=== PATIENT | male | born 1965 | race Caucasian/White ===

== ENCOUNTER 2018-05-27 11:16 | Emergency (ER) | payer BC ==
[~2018-05-27] VITALS: Ht 198.1 cm; Wt 115.7 kg
--- NOTE | 2018-05-27 11:59 | RAD ---
Examination: CT of the abdomen pelvis without contrast HISTORY: History of right flank pain, history of renal stones COMPARISON: 04/25/2005 TECHNIQUE: Axial CT images of the abdomen pelvis were performed without contrast. Coronal and sagittal reformats are performed Exposure: One or more of the following individualized dose reduction techniques were utilized for this examination: 1. Automated exposure control 2. Adjustment of the mA and/or kV according to patient size 3. Use of iterative reconstruction technique FINDINGS: Minimal bibasilar lung atelectasis. No evidence of free air identified in the abdomen. The evaluation of the solid organs is limited due to lack of IV contrast. The evaluation of bowel is limited due to lack of oral contrast. There is a cystic structure identified in the right lobe of the liver measuring 2.6 cm could be a cyst or cystic lesion. This was not visualized on the prior exam of 2004.The visualized spleen, adrenals grossly appears unremarkable. The gallbladder is mildly distended. Small hiatal hernia. Stomach is mildly distended. The visualized pancreas grossly appears unremarkable. The small bowel is nondilated. The appendix is dilated and fluid distended measuring up to 1.1 cm with moderate inflammatory fat stranding around the appendix likely acute appendicitis. Feces and gas noted in the colon. Urinary bladder is mildly distended. Small amount of free fluid identified in the pelvis. Punctate 2 mm intrarenal collecting system calculus identified in the left kidney. There is a cystic structure identified in the left kidney measuring 1.5 cm could be a cyst or cystic lesion. Moderate degenerative changes lumbar spine. IMPRESSION: 1. Findings consistent with acute appendicitis. 2. Punctate 2 mm calculus left kidney. 3. Cystic structures identified in the liver and left kidney could be cysts or cystic lesions. Follow-up nonemergent ultrasound liver and kidneys is recommended. Electronically signed by: Jus Nj MD (05/27/2018 11:56 AM) [facility]
[2018-05-27 12:12] LABS: BASO % 0 % (0-3); EOS % 0 % (0-3); HEMATOCRIT 43.3 % (39.0-53.0); LYMPH # 1.5 x10^3/uL (1.0-4.8); LYMPH % 14 % (24-48); MEAN CORPUSCULAR HEMOGLOBIN 31 pg (25-35); MEAN CORPUSCULAR HGB CONC 35 g/dL (31-37); MEAN CORPUSCULAR VOLUME 91 fL (79-100); MONO # 0.8 x10^3/uL (0.0-1.1); MONO % 8 % (0-9); NEUT # 8.5 x10^3uL (1.8-7.7); NEUT % 78 % (31-73); PLATELET COUNT 222 x10^3/uL (140-400); RED BLOOD COUNT 4.76 x10^6/uL (4.30-5.70); WHITE BLOOD COUNT 10.9 x10^3/uL (4.0-11.0)
[2018-05-27] MEDS ORDERED: IV NORMAL SALINE 1,000ML 1,000 ML IV ONE (12:15)
[2018-05-27 12:20] LABS: BILIRUBIN,URINE NEG (NEG); CLARITY,URINE CLEAR; COLOR,URINE AMBER; GLUCOSE,URINE NEG (NEG)
[2018-05-27 12:21] LABS: BACTERIA,URINE 0 /HPF (0-FEW); NITRITE,URINE NEG (NEG); SQUAMOUS EPITHELIAL CELL,UR OCC /LPF; UROBILINOGEN,URINE 0.2 mg/dL (0.2 mg/dL); WBC,URINE RARE /HPF (0-4)
[2018-05-27 12:25] LABS: ALBUMIN 3.8 g/dL (3.4-5.0); ALBUMIN/GLOBULIN RATIO 1.1 (1.0-1.7); CALCIUM 8.7 mg/dL (8.5-10.1); GFR 77.9; POTASSIUM 3.9 mmol/L (3.5-5.1); TOTAL BILIRUBIN 1.9 mg/dL (0.2-1.0); TOTAL PROTEIN 7.3 g/dL (6.4-8.2)
--- NOTE | 2018-05-27 12:25 | PHYS DOC ---
Past History Past Medical History: Kidney Stones Past Surgical History: No Surgical History Alcohol Use: Occasionally Drug Use: None Adult General Chief Complaint Chief Complaint: ABDOMINAL PAIN HPI HPI 52-year-old female patient complaining of gradual onset of right-sided abdominal pain that started about 3 days ago as an intermittent pain that happens with movement and activity without radiation. Patient complaining of mild nausea without vomiting and anorexia since this morning. Patient rated his pain as 0 at rest and 5 with activity. Patient denies urinary symptoms, diarrhea and constipation, history of the same pain. Patient states he lifted a heavy weight 2 days before starting pain usually does extensive physical activity without problem. Review of Systems Review of Systems Constitutional: Denies fever or chills [] Eyes: Denies change in visual acuity, redness, or eye pain [] HENT: Denies nasal congestion or sore throat [] Respiratory: Denies cough or shortness of breath [] Cardiovascular: No additional information not addressed in HPI [] GI: Reports abdominal pain, nausea, denies vomiting, bloody stools or diarrhea [ ] : Denies dysuria or hematuria [] Musculoskeletal: Denies back pain or joint pain [] Integument: Denies rash or skin lesions [] Neurologic: Denies headache, focal weakness or sensory changes [] Endocrine: Denies polyuria or polydipsia [] All other systems were reviewed and found to be within normal limits, except as documented in this note. Current Medications Current Medications Current Medications Medications (Trade) Dose Ordered Sig/Gordo Start Time Stop Time Status Last Admin Dose Admin Ketorolac Tromethamine (Toradol) 30 mg 1X ONCE 05/27/18 12:15 05/27/18 12:16 UNV Ondansetron HCl (Zofran) 4 mg 1X ONCE 05/27/18 12:15 05/27/18 12:16 UNV Sodium Chloride 1,000 ml @ 1,000 mls/hr 1X ONCE 05/27/18 12:15 05/27/18 13:14 UNV Allergies Allergies Allergies Coded Allergies Type Severity Reaction Last Updated Verified Penicillins Allergy Unknown 05/27/18 Yes Physical Exam Physical Exam Constitutional: Well developed, well nourished, no acute distress, non-toxic appearance. [] HENT: Normocephalic, atraumatic, oropharynx moist, no oral exudates, nose normal. [] Eyes: PERRLA, EOMI, conjunctiva normal, no discharge. [] Neck: Normal range of motion, no tenderness, supple, no stridor. [] Cardiovascular:Heart rate regular rhythm, no murmur [] Lungs & Thorax: Bilateral breath sounds clear to auscultation [] Abdomen: Bowel sounds normal, soft, no tenderness, mild guarding between right upper quadrant and right lower quadrant without positive McBurney, no masses, no pulsatile masses. [] Skin: Warm, dry, no erythema, no rash. [] Back: No tenderness, no CVA tenderness. [] Extremities: No tenderness, no cyanosis, no clubbing, ROM intact, no edema. [] Neurologic: Alert and oriented X 3, normal motor function, normal sensory function, no focal deficits noted. [] Psychologic: Affect normal, judgement normal, mood normal. [] Current Patient Data Vital Signs Vital Signs Date Time Temp Pulse Resp B/P (MAP) Pulse Ox O2 Delivery O2 Flow Rate FiO2 05/27/18 11:25 98.5 77 16 100 Room Air Lab Results Laboratory Tests Test 05/27/18 11:50 White Blood Count 10.9 x10^3/uL (4.0-11.0) Red Blood Count 4.76 x10^6/uL (4.30-5.70) Hemoglobin 15.0 g/dL (13.0-17.5) Hematocrit 43.3 % (39.0-53.0) Mean Corpuscular Volume 91 fL (79-100) Mean Corpuscular Hemoglobin 31 pg (25-35) Mean Corpuscular Hemoglobin Concent 35 g/dL (31-37) Red Cell Distribution Width 14.0 % (11.5-14.5) Platelet Count 222 x10^3/uL (140-400) Neutrophils (%) (Auto) 78 % (31-73) H Lymphocytes (%) (Auto) 14 % (24-48) L Monocytes (%) (Auto) 8 % (0-9) Eosinophils (%) (Auto) 0 % (0-3) Basophils (%) (Auto) 0 % (0-3) Neutrophils # (Auto) 8.5 x10^3uL (1.8-7.7) H Lymphocytes # (Auto) 1.5 x10^3/uL (1.0-4.8) Monocytes # (Auto) 0.8 x10^3/uL (0.0-1.1) Eosinophils # (Auto) 0.0 x10^3/uL (0.0-0.7) Basophils # (Auto) 0.0 x10^3/uL (0.0-0.2) EKG EKG [] Radiology/Procedures Radiology/Procedures [][address] [id number] IMAGING REPORT Signed PATIENT: DAMASO TENA ACCOUNT: [id number] : 1965 LOCATION: ER AGE: 52 SEX: M EXAM STATUS: PRE ER ORD. PHYSICIAN: FRANCISCO GUPTA MD REASON: right side of abdominal pain with radiation to flank PROCEDURE: CT ABDOMEN PELVIS WO CONTRAST Examination: CT of the abdomen pelvis without contrast HISTORY: History of right flank pain, history of renal stones COMPARISON: 04/25/2005 TECHNIQUE: Axial CT images of the abdomen pelvis were performed without contrast. Coronal and sagittal reformats are performed Exposure: One or more of the following individualized dose reduction techniques were utilized for this examination: 1. Automated exposure control 2. Adjustment of the mA and/or kV according to patient size 3. Use of iterative reconstruction technique FINDINGS: Minimal bibasilar lung atelectasis. No evidence of free air identified in the abdomen. The evaluation of the solid organs is limited due to lack of IV contrast. The evaluation of bowel is limited due to lack of oral contrast. There is a cystic structure identified in the right lobe of the liver measuring 2.6 cm could be a cyst or cystic lesion. This was not visualized on the prior exam of 2004.The visualized spleen, adrenals grossly appears unremarkable. The gallbladder is mildly distended. Small hiatal hernia. Stomach is mildly distended. The visualized pancreas grossly appears unremarkable. The small bowel is nondilated. The appendix is dilated and fluid distended measuring up to 1.1 cm with moderate inflammatory fat stranding around the appendix likely acute appendicitis. Feces and gas noted in the colon. Urinary bladder is mildly distended. Small amount of free fluid identified in the pelvis. Punctate 2 mm intrarenal collecting system calculus identified in the left kidney. There is a cystic structure identified in the left kidney measuring 1.5 cm could be a cyst or cystic lesion. Moderate degenerative changes lumbar spine. IMPRESSION: 1. Findings consistent with acute appendicitis. 2. Punctate 2 mm calculus left kidney. 3. Cystic structures identified in the liver and left kidney could be cysts or cystic lesions. Follow-up nonemergent ultrasound liver and kidneys is recommended. Course & Med Decision Making Course & Med Decision Making Pertinent Labs and Imaging studies reviewed. (See chart for details) Evaluation of patient in ER showed 52-year-old male patient with complaining of lower abdominal pain for 3 days and nausea and decrease of appetite. Patient had unremarkable physical exam except for mild guarding of right side of abdomen. Labs was unremarkable. Patient had tooth appendicitis reported in CT of abdomen and pelvis. Dr. Koch accepted transfer to [facility] at 1215. Dr. Núñez on-call surgeon at [facility] informed at 1219 and recommended to give antibiotic and Rocephin was started. Patient and his informed about the test result and plan of transfer to [facility]. [] Dragon Disclaimer Dragon Disclaimer This electronic medical record was generated, in whole or in part, using a voice recognition dictation system. Departure Departure: Impression: Primary Impression: Acute appendicitis Disposition: 02 XFER [id number]-TRM HOSP ([facility] at 1220) Admitting Physician: Jaonne Koch (accepted transfer to [facility] at 12:15) Condition: IMPROVED Referrals: PATRICE CALIX (PCP) FRANCISCO GUPTA MD May 27, 2018 12:25
[2018-05-27] MEDS ORDERED: cefTRIAXone IV Push 1 GM VIAL. IVP ONE (12:30)
[2018-05-27] MEDS ORDERED: KETOROLAC 30 MG/ML VIAL. IV ONE (12:30)
[2018-05-27] MEDS ORDERED: ONDANSETRON PF 4 MG/2 ML VIAL. IV ONE (12:30)
[2018-05-27 12:35] VITALS: BP 145/86
== END 2018-05-27 12:42 | disposition short-term general hospital (02) ==
LOC: ER 11:16
DX: K35.80 Unspecified acute appendicitis (principal); N20.0 Calculus of kidney; K76.89 Other specified diseases of liver; Z87.442 Personal history of urinary calculi; Z88.0 Allergy status to penicillin
CPT/HCPCS: 36415; 74176; 80053; 81001; 83690; 85025; 96374; 96375; 99285; J0696; J1885; J2405; J7030

== ENCOUNTER → 2020-04-21 | Outpatient (CLI) | payer BC ==
[~2020-04-21] MED LIST: HYDR-3165 PO; IOHEXOL 240 MG/ML 50ML VIAL. PO ONE; IOHEXOL 300 MG/ML 75 ML VIAL. IV ONE
--- NOTE | 2020-04-21 16:12 | RAD ---
Examination: CT ABD PELV W/ORAL IV CONTRAST History: Reason: PROSTATE CANCER / Spl. Instructions: / History: Comparison/Correlation: 05/27/2018 CT abdomen and pelvis without contrast Findings: Axial images of the abdomen and pelvis were obtained following IV and oral contrast. Sagittal and coronal reformatted images were provided. Visualized lung bases are clear. Small hiatal hernia is present. Right hepatic lobe cyst again is seen. Spleen, pancreas, adrenal glands, and right kidney are normal. The left renal posterior lateral superior pole on axial image 23, there is a hypoenhancing region measuring 1.8 cm x 1.7 cm x 2 cm longitudinal. At the right renal lower pole, there is a simple cyst which does not need follow-up. Nonobstructive right lower pole calyceal calculi adjacent to one another are present measuring 0.4 cm x 0.4 similar. No enlarged abdominal or pelvic lymph nodes. No inflammatory findings about the cecum. No bowel obstruction or extraluminal gas. Large quantity of stool is present in the rectum. Prostate gland measures 4.8 cm x 4.9 cm transverse by 4.7 cm longitudinal. Degenerative disc space narrowing of the lumbar spine is seen at multiple levels with exception of L3-4. Concentric disc bulge at L4-5 is present with moderate spinal canal stenosis. Spinal canal stenosis at L5-S1 also seen. No suspicious bony findings are evident in the interval. Transitional L5 vertebra is evident. Impression: Left renal superior pole hypoenhancing mass is present of concern for renal cell carcinoma or other malignant process. Prostatomegaly is present without significant change in size. No evidence of enlarged lymph nodes. No metastases identified. Small hiatal hernia. Nonobstructive left renal inferior pole calyceal calculus involvement. PQRS Compliance Statement: One or more of the following individualized dose reduction techniques were utilized for this examination: 1. Automated exposure control 2. Adjustment of the mA and/or kV according to patient size 3. Use of iterative reconstruction technique Electronically signed by: Hermann Arora MD (04/21/2020 4:09 PM) [id number]
--- NOTE | 2020-04-21 16:17 | RAD ---
Examination: BONE SCAN WHOLE BODY History: Reason: PROSTATE CA / Spl. Instructions: / History: Comparison/Correlation: 04/21/2020 CT abdomen and pelvis with contrast Findings: 26 mCi technetium 99m MDP was intravenously administered for purposes of total body bone scintigraphy. Uptake of radiotracer involving the right glenohumeral joint is present and may represent advanced degenerative change. Uptake of radiotracer along the anterior midline of the cervical spine is present. Uptake at the junction of the manubrium and sternum noted and this may represent degenerative change. There is a small focus of uptake involving the right lateral femoral condyle at its mesial aspect. Kidneys and urinary bladder are seen. Impression: Uptake involving the right glenohumeral joint, manubriosternal junction, and cervical spine which probably relates to degenerative change. Correlate with history of intervention involving the cervical spine. Correlate with x-ray examination. Small nonspecific focus of uptake involving the right lateral femoral condyle which may relate to degenerative change. Correlate with x-ray exam. Electronically signed by: Hermann Arora MD (04/21/2020 4:14 PM) [id number]
== END | disposition home or self-care (01) ==
LOC: NM 07:57
PROVIDERS: ATTEND Urology
DX: C61 Malignant neoplasm of prostate (principal); K44.9 Diaphragmatic hernia without obstruction or gangrene; N20.0 Calculus of kidney; N28.1 Cyst of kidney, acquired; M51.36 Other intervertebral disc degeneration, lumbar region; M48.07 Spinal stenosis, lumbosacral region; R16.0 Hepatomegaly, not elsewhere classified
CPT/HCPCS: 74177; 78306; A9503; Q9967

== ENCOUNTER 2020-05-12 04:25 | Emergency (ER) | payer BC ==
[~2020-05-12] VITALS: Ht 198.1 cm; Wt 110.8 kg
[2020-05-12 04:25] VITALS: BP 167/104
--- NOTE | 2020-05-12 04:42 | PHYS DOC ---
Past History Past Medical History: Kidney Stones Past Surgical History: No Surgical History Alcohol Use: Occasionally Drug Use: None General Adult EDM: Chief Complaint: dysuria HPI: HPI: 54-year-old male presents with dysuria. The patient recently had a prostate procedure. He had his catheter removed yesterday. He has urinated 7 times since its removal. The last 2 times he has had significant decreased stream and an increase in pain. The urine is yellow and does not appear to be bloody. He is just really concerned about how painful it is. He does not currently feel like he is retaining. Denies fever chills. Review of Systems: Review of Systems: Constitutional: Denies fever or chills Eyes: Denies change in visual acuity HENT: Denies nasal congestion or sore throat Respiratory: Denies cough or shortness of breath Cardiovascular: Denies chest pain or edema GI: Denies abdominal pain, nausea, vomiting, bloody stools or diarrhea : Dysuria Musculoskeletal: Denies back pain or joint pain Integument: Denies rash Neurologic: Denies headache, focal weakness or sensory changes Endocrine: Denies polyuria or polydipsia Lymphatic: Denies swollen glands Psychiatric: Denies depression or anxiety Heart Score: Risk Factors: Risk Factors: DM, Current or recent (<one month) smoker, HTN, HLP, family history of CAD, obesity. Risk Scores: Score 0 - 3: 2.5% MACE over next 6 weeks - Discharge Home Score 4 - 6: 20.3% MACE over next 6 weeks - Admit for Clinical Observation Score 7 - 10: 72.7% MACE over next 6 weeks - Early Invasive Strategies Allergies: Allergies: Allergies Coded Allergies Type Severity Reaction Last Updated Verified Penicillins Allergy Unknown 05/27/18 Yes Physical Exam: PE: Constitutional: Well developed, well nourished, no acute distress, non-toxic appearance. [] HENT: Normocephalic, atraumatic, bilateral external ears normal, oropharynx moist, no oral exudates, nose normal. [] Eyes: PERRLA, EOMI, conjunctiva normal, no discharge. [] Neck: Normal range of motion, no tenderness, supple, no stridor. [] Cardiovascular:Heart rate regular rhythm, no murmur [] Lungs & Thorax: Bilateral breath sounds clear to auscultation [] Abdomen: Bowel sounds normal, soft, no tenderness, no masses, no pulsatile masses. [] Skin: Warm, dry, no erythema, no rash. [] Back: No tenderness, no CVA tenderness. [] Extremities: No tenderness, no cyanosis, no clubbing, ROM intact, no edema. [] Neurologic: Alert and oriented X 3, normal motor function, normal sensory function, no focal deficits noted. [] Psychologic: Affect normal, judgement normal, mood normal. [] EKG: EKG: [] Radiology/Procedures: Radiology/Procedures: [] Course & Med Decision Making: Course & Med Decision Making Pertinent Labs and Imaging studies reviewed. (See chart for details) The patient's urinalysis shows blood, but few bacteria. This is expected with recent removal of his catheter. Since he is still able to urinate there is no thing to do at this time. I have given him a Blair 5/325 in the ER for his pain. I will discharge him with a prescription for the same. He will follow-up with his urologist later today. [] Sydni Disclaimer: Sydni Disclaimer: This electronic medical record was generated, in whole or in part, using a voice recognition dictation system. Departure Departure: Impression: Primary Impression: Dysuria Disposition: 01 HOME/RESIDENCE PRIOR TO ADM Condition: STABLE Referrals: PATRICE CALIX (PCP) Patient Instructions: Dysuria Scripts Hydrocodone Bit/Acetaminophen (NORCO 5-325 TABLET) 1 Each Tablet 1 TAB PO PRN Q6HRS PRN for PAIN, #10 TAB 0 Refills Prov: AUGIE SOSA DO 05/12/20 Justification of Admission: Justification of Admission: Justification of Admission Dx: N/A AUGIE SOSA DO May 12, 2020 04:42
[2020-05-12] MEDS ORDERED: HYDROcodone/APAP 5/325MG 1 TAB TABLET PO ONE (04:45)
[2020-05-12 05:01] LABS: BACTERIA,URINE FEW /HPF (0-FEW); BILIRUBIN,URINE NEG (NEG); CLARITY,URINE HAZY; COLOR,URINE YELLOW; GLUCOSE,URINE NEG (NEG); NITRITE,URINE NEG (NEG); RBC,URINE >40 /HPF (0-2); SQUAMOUS EPITHELIAL CELL,UR OCC /LPF; UROBILINOGEN,URINE 0.2 mg/dL (0.2 mg/dL); WBC,URINE >40 /HPF (0-4)
[2020-05-12] MEDS ORDERED: HYDR-3165 PO (05:08)
[2020-05-12] MEDS ORDERED: MORPHINE SULFATE 4 MG/ML DISP.SYRIN. IM ONE (05:30)
== END 2020-05-12 05:20 | disposition home or self-care (01) ==
LOC: ER 04:25
DX: R30.0 Dysuria (principal); Z87.442 Personal history of urinary calculi; Z88.0 Allergy status to penicillin
CPT/HCPCS: 81001; 96372; 99283; J2270

== ENCOUNTER → 2020-09-16 | Outpatient (CLI) | payer BC ==
[~2020-09-16] MED LIST changes: -IOHEXOL 240 MG/ML 50ML VIAL. PO ONE
--- NOTE | 2020-09-16 14:40 | RAD ---
EXAM: CT Abdomen and Pelvis with IV contrast CLINICAL HISTORY: Prostate cancer, left renal abnormality COMPARISON: 04/21/2020 05/27/2018 TECHNIQUE: Helical CT of the abdomen and pelvis was performed following the administration of IV contrast. Axial, coronal and sagittal reformatted images were generated. ---PQRS compliance statement - One or more of the following individualized dose reduction techniques were utilized for this study: 1. Automated exposure control 2. Adjustment of the mA and/or kV according to patient size 3. Use of iterative reconstruction technique--- FINDINGS: Lower chest: Linear opacities middle lobe and lingula likely scarring/atelectasis. Abdomen and pelvis: Liver and biliary system: Right hepatic cystic lesion is stable. Gallbladder is normal. No biliary ductal dilatation. Spleen: Unremarkable Pancreas: Unremarkable Adrenal glands: Unremarkable Kidneys: Symmetric nephrograms. Solid enhancing mass in the left upper pole of the kidney measures approximately 3.7 x 3 cm, increased in size, previously measured as 1.8 x 1.7 x 2 cm. Left lower pole renal cyst. Nonobstructing left lower pole renal calculus. Lymph nodes/retroperitoneum: Left external iliac chain low density structure measures 1.5 x 1.2 cm possibly cystic or necrotic lymph node. Otherwise no abdominal or pelvic lymphadenopathy. Vessels: Aortic calcifications are seen. Bowel/Peritoneal cavity: Moderate to large volume colonic stool content is seen. No small or large bowel dilatation. Small hiatal hernia. No abdominal or pelvic ascites. Abdominal wall: Unremarkable Bladder: Bladder wall thickening likely cystitis. Bones: No aggressive osseous lesion. IMPRESSION: 1. The solid left upper pole hypoenhancing renal lesion has increased in size suspicious for primary renal malignancy. This can be further assessed with MRI and histopathologic correlation as clinically indicated. 2. Low-density left iliac chain lesion may represent a necrotic lymph node or fluid collection. This can be further assessed by ultrasound to evaluate for possible cystic nature. Otherwise no abdominal or pelvic lymphadenopathy. 3. Nonobstructing left renal calculus. Electronically signed by: Howie Petersen MD (09/16/2020 2:37 PM) [id number]
== END ==
LOC: CT 10:36
PROVIDERS: ATTEND Urology
DX: C61 Malignant neoplasm of prostate (principal); K76.89 Other specified diseases of liver; K76.9 Liver disease, unspecified; N20.0 Calculus of kidney; K44.9 Diaphragmatic hernia without obstruction or gangrene
CPT/HCPCS: 74177; Q9967

== ENCOUNTER 2020-12-23 23:45 | Emergency (ER) | payer BC ==
[~2020-12-23] VITALS: Ht 198.1 cm; Wt 110.8 kg
[~2020-12-23 23:45] MED LIST changes: -IOHEXOL 300 MG/ML 75 ML VIAL. IV ONE
--- NOTE | 2020-12-23 23:51 | PHYS DOC ---
Past History Past Medical History: Kidney Stones, Other Additional Past Medical Histor: prostate CA Past Surgical History: Appendectomy Alcohol Use: Occasionally Drug Use: None General Adult EDM: Chief Complaint: COUGH HPI: HPI: ".. I had COVID back on 11/25.. and have not completely recovered.... I still get very short of breath when I work out. I have this nonproductive cough.... This worried that something wrong..." Patient is a 55 year old male who presents with above hx and complaints of cough and wheezing after working out. Patient was diagnosed with Covid back on 11/25/20. Patient completed isolation. But since that time he has remained somewhat short of breath. Patient denies any travel. Patient denies any sick ill contacts. Normally follows with .. Patient denies any history of mental suppression. No history of previous episodes with dyspnea. Patient does have a history of previous renal cell carcinoma status post resection. Review of Systems: Review of Systems: Constitutional: Denies fever or chills Eyes: Denies change in visual acuity HENT: Denies nasal congestion or sore throat Respiratory: Complains of wheezing Cardiovascular: Denies chest pain or edema GI: Denies abdominal pain, nausea, vomiting, bloody stools or diarrhea : Denies dysuria Musculoskeletal: Denies back pain or joint pain Integument: Denies rash Neurologic: Denies headache, focal weakness or sensory changes Endocrine: Denies polyuria or polydipsia Lymphatic: Denies swollen glands Psychiatric: Denies depression or anxiety Family History: Family History: None contributory Current Medications: Current Meds: See long term meds Allergies: Allergies: Allergies Coded Allergies Type Severity Reaction Last Updated Verified Penicillins Allergy Unknown 05/27/18 Yes Physical Exam: PE: Constitutional: Well developed, well nourished, no acute distress, non-toxic appearance. [] HENT: Normocephalic, atraumatic, bilateral external ears normal, oropharynx moist, no oral exudates, nose normal. [] Eyes: PERRLA, EOMI, conjunctiva normal, no discharge. [] Neck: Normal range of motion, no tenderness, supple, no stridor. [] Cardiovascular: Tachycardia heart rate regular rhythm, no murmur [] Lungs & Thorax: Bilateral breath sounds equal apex with few scattered wheezes auscultation [] Abdomen: Bowel sounds normal, soft, no tenderness, no masses, no pulsatile masses. Old surgical scar Skin: Warm, dry, no erythema, no rash. [] Back: No tenderness, no CVA tenderness. Surgical scar Extremities: No tenderness, no cyanosis, no clubbing, ROM intact, no edema. [] Neurologic: Alert and oriented X 3, normal motor function, normal sensory function, no focal deficits noted. [] Psychologic: Affect anxious, judgement normal, mood normal. [] EKG: EKG: My interpretation EKG shows a sinus tachycardia 104 bpm. There is a right bundl e branch block. Some nonspecific T wave changes. But no findings acute STEMI of contralateral changes. [] Radiology/Procedures: Radiology/Procedures: [[address] [address] IMAGING REPORT Signed PATIENT: DAMASO TENA ACCOUNT: [id number] : 1965 LOCATION: ER AGE: 55 SEX: M EXAM STATUS: REG ER ORD. PHYSICIAN: ISSA WOOD MD REASON: dyspnea, hx COVID - 11/25/20 Omni 350 100cc PROCEDURE: CT ANGIOGRAPHY CHEST EXAM: CT ANGIOGRAPHY OF THE CHEST WITH AND WITHOUT CONTRAST. HISTORY: Dyspnea, COVID-19. TECHNIQUE: Computed tomographic angiography of the chest was performed before and after the intravenous administration of iodinated contrast. 3-D maximum intensity projections were also performed. One or more of the following individualized dose reduction techniques were utilized for this examination: 1. Automated exposure control. 2. Adjustment of the mA and/or kV according to patient size. 3. Use of iterative reconstruction technique. COMPARISON: None. FINDINGS: Images of the upper abdomen reveal dense material and scarring along the lateral aspect of the left renal upper pole, suggesting prior ablation of a renal cell carcinoma since the prior study. Benign cysts in the right hepatic lobe measure up to 3.6 x 2.1 cm. There is a small hiatal hernia. Bone windows reveal no suspicious lesions. No pulmonary emboli are identified. There is no aortic dissection or aneurysm. There are no pathologically enlarged mediastinal or axillary lymph nodes. There is no pleural or pericardial effusion. The heart is not enlarged. A tracheal diverticulum posterolaterally on the right is below the thoracic inlet measures 14 x 8 mm. An uncalcified nodule in the left upper lobe measures 1.6 x 1.3 cm. Tiny surrounding satellite nodules central canal stenosis postinflammatory etiology but it remains intact. There is diffuse bronchial wall thickening. Minimal septal line thickening in the bases may reflect atelectasis or trace edema or early interstitial lung disease. IMPRESSION: 1. No pulmonary embolism. 2. 1.6 cm indeterminate left upper lobe nodule. Comparison with older examinat ions is recommended to assess stability. Three-month follow-up, PET CT for percutaneous biopsy is recommended if none are available. 3. Trace pulmonary edema versus minimal interstitial lung disease in the costophrenic angles. Bronchial wall thickening may reflect acute or chronic bronchitis. 4. Small hiatal hernia. 5. Findings consistent with prior ablation of a left renal cell carcinoma. Ongoing follow-up is recommended. Electronically signed by: Anne Poe MD (12/24/2020 12:59 AM) [facility] DICTATED AND SIGNED BY: DAMASO POE MD DATE: 12/24/2047 CC: ISSA WOOD MD; PATRICE CALIX ~MTH0 0 ][place] [address] IMAGING REPORT Signed PATIENT: DAMASO TENA ACCOUNT: [id number] : 1965 LOCATION: ER AGE: 55 SEX: M EXAM STATUS: REG ER ORD. PHYSICIAN: ISSA WOOD MD REASON: dyspnea, hx COVID - 11/25/20 PROCEDURE: PORTABLE CHEST 1V EXAM: CHEST ONE VIEW. HISTORY: Dyspnea, COVID-19. COMPARISON: Today's CT. FINDINGS: A frontal view of the chest is obtained. A nodule in the left upper lobe measures 1.6 x 1.3 cm. There are no confluent infiltrates. There is no pneumothorax or pleural effusion. The heart is not enlarged. IMPRESSION: 1. No confluent infiltrates. 2. Refer to CT for description of a 1.6 cm left upper lobe nodule. Electronically signed by: Anne Poe MD (12/24/2020 1:00 AM) [facility] DICTATED AND SIGNED BY: DAMASO POE MD DATE: 12/24/20 0059 CC: ISSA WOOD MD; PATRICE CALIX ~MTH0 0 Heart Score: HEART Score for Chest Pain: HEART Score for Chest Pain Response (Comments) Value History Slighlty/Non-Suspicious 0 ECG Nonspecific Repolarizatio 1 Age >45 - < 65 1 Risk Factors 1 or 2 Risk Factors 1 Troponin < Normal Limit 0 Total 3 Risk Factors: Risk Factors: DM, Current or recent (<one month) smoker, HTN, HLP, family history of CAD, obesity. Risk Scores: Score 0 - 3: 2.5% MACE over next 6 weeks - Discharge Home Score 4 - 6: 20.3% MACE over next 6 weeks - Admit for Clinical Observation Score 7 - 10: 72.7% MACE over next 6 weeks - Early Invasive Strategies Course & Med Decision Making: Course & Med Decision Making Pertinent Labs and Imaging studies reviewed. (See chart for details) Patient to do a course of prednisone 50 mg daily, use MDI 2 puffs 4 times a day. Follow-up primary care. Push fruit juices. Take Eliquis 5 mg twice a day for the next 10 days. Consider stress testing if continued issues with dyspnea or shortness of breath. Must follow-up primary with a left lung nodule. This must be followed up. Comparison CTs would be helpful Impression: 1. Post Covid syndrome 2. Bronchitis 3. Left 1.6 x 1.3 cm lung nodule 4. History of renal carcinoma-left status post surgery [] Dragon Disclaimer: Dragon Disclaimer: This electronic medical record was generated, in whole or in part, using a voice recognition dictation system. Departure Departure: Referrals: PATRICE CALIX (PCP) Dragon Disclaimer This chart was dictated in whole or in part using Voice Recognition software in a busy, high-work load, and often noisy Emergency Department environment. It may contain unintended and wholly unrecognized errors or omissions. Dragon Disclaimer This chart was dictated in whole or in part using Voice Recognition software in a busy, high-work load, and often noisy Emergency Department environment. It may contain unintended and wholly unrecognized errors or omissions. ISAS WOOD MD Dec 23, 2020 23:51
[2020-12-24] MEDS ORDERED: APIXABAN 5 MG TABLET. PO SCH (00:15)
[2020-12-24] MEDS ORDERED: IOHEXOL 350 MG/ML 100 ML VIAL. IV ONE (00:15)
[2020-12-24] MEDS ORDERED: ASPIRIN CHEWABLE 81 MG TABLET. PO ONE (00:15)
[2020-12-24] MEDS ORDERED: IV RINGERS SOLUTION,LACTATED 1,000 ML IV SCH (00:15)
[2020-12-24] MEDS ORDERED: methylPREDNISolone SOD SUCC PF 125 MG/2 ML VIAL. IV ONE (00:15)
[2020-12-24] MEDS ORDERED: ALBUTEROL SULFATE 8GM INHALER. INH ONE (00:15)
[2020-12-24] MEDS ORDERED: CONTRAST GIVEN. MC PRN (00:15)
[2020-12-24 00:24] LABS: BASO % 1 % (0-3); EOS # 0.3 x10^3/uL (0.0-0.7); EOS % 5 % (0-3); HEMATOCRIT 40.8 % (39.0-53.0); HEMOGLOBIN 13.9 g/dL (13.0-17.5); LYMPH # 2.1 x10^3/uL (1.0-4.8); LYMPH % 36 % (24-48); MEAN CORPUSCULAR HEMOGLOBIN 31 pg (25-35); MEAN CORPUSCULAR HGB CONC 34 g/dL (31-37); MEAN CORPUSCULAR VOLUME 91 fL (79-100); MONO # 0.4 x10^3/uL (0.0-1.1); MONO % 7 % (0-9); NEUT % 51 % (31-73); PLATELET COUNT 265 x10^3/uL (140-400); RED BLOOD COUNT 4.51 x10^6/uL (4.30-5.70); RED CELL DISTRIBUTION WIDTH 13.6 % (11.5-14.5); WHITE BLOOD COUNT 5.8 x10^3/uL (4.0-11.0)
[2020-12-24 00:33] LABS: CREATININE 1.2 mg/dL (0.7-1.3); GFR 62.4; POTASSIUM 3.4 mmol/L (3.5-5.1)
[2020-12-24 00:50] LABS: ALBUMIN 3.9 g/dL (3.4-5.0); DIRECT BILIRUBIN 0.1 mg/dL (0.0-0.2); MAGNESIUM 2.1 mg/dL (1.8-2.4); TOTAL BILIRUBIN 0.5 mg/dL (0.2-1.0); TOTAL PROTEIN 7.4 g/dL (6.4-8.2)
--- NOTE | 2020-12-24 00:54 | EKG ---
[address] [address] Test Date: 2020-12-24 Test Time: 00:31:02 Pat Name: DAMASO TENA Department: Room: Gender: M Manager Party: MYRNA : 1965 Requested By: ISSA WOOD Order Number: [id number] Reading MD: Measurements Intervals [place] Rate: 104 P: 52 IN: 162 QRS: 84 QRSD: 114 T: 61 QT: 366 QTc: 488 Interpretive Statements SINUS TACHYCARDIA INCOMPLETE RIGHT BUNDLE BRANCH BLOCK T ABNORMALITY IN ANTEROSEPTAL LEADS ABNORMAL ECG RI6.02 No previous ECG available for comparison
[2020-12-24 01:35] VITALS: BP 132/66
--- NOTE | 2020-12-24 05:09 | RAD ---
EXAM: CHEST ONE VIEW. HISTORY: Dyspnea, COVID-19. COMPARISON: Today's CT. FINDINGS: A frontal view of the chest is obtained. A nodule in the left upper lobe measures 1.6 x 1.3 cm. There are no confluent infiltrates. There is n o pneumothorax or pleural effusion. The heart is not enlarged. IMPRESSION: 1. No confluent infiltrates. 2. Refer to CT for description of a 1.6 cm left upper lobe nodule. Electronically signed by: Anne Poe MD (12/24/2020 1:00 AM) [facility]
--- NOTE | 2020-12-24 05:09 | RAD ---
EXAM: CT ANGIOGRAPHY OF THE CHEST WITH AND WITHOUT CONTRAST. HISTORY: Dyspnea, COVID-19. TECHNIQUE: Computed tomographic angiography of the chest was performed before and after the intraveno us administration of iodinated contrast. 3-D maximum intensity projections were also performed. One o r more of the following individualized dose reduction techniques were utilized for this examination: 1. Automated exposure control. 2. Adjustment of the mA and/or kV according to patient size. 3. Use of iterative reconstruction technique. COMPARISON: None. FINDINGS: Images of the upper abdomen reveal dense material and scarring along the lateral aspect of the left renal upper pole, suggesting prior ablation of a renal cell carcinoma since the prior study. Benign cysts in the right hepatic lobe measure up to 3.6 x 2.1 cm. There is a small hiatal hernia. B one windows reveal no suspicious lesions. No pulmonary emboli are identified. There is no aortic dissection or aneurysm. There are no pathologically enlarged mediastinal or axillary lymph nodes. There is no pleural or swapna cardial effusion. The heart is not enlarged. A tracheal diverticulum posterolaterally on the right is below the thoracic inlet measures 14 x 8 mm. An uncalcified nodule in the left upper lobe measures 1.6 x 1.3 cm. Tiny surrounding satellite nodule s central canal stenosis postinflammatory etiology but it remains intact. There is diffuse bronchial wall thickening. Minimal septal line thickening in the bases may reflect atelectasis or trace edema o r early interstitial lung disease. IMPRESSION: 1. No pulmonary embolism. 2. 1.6 cm indeterminate left upper lobe nodule. Comparison with older examinations is recommended to assess stability. Three-month follow-up, PET CT for percutaneous biopsy is recommended if none are av ailable. 3. Trace pulmonary edema versus minimal interstitial lung disease in the costophrenic angles. Bronchi al wall thickening may reflect acute or chronic bronchitis. 4. Small hiatal hernia. 5. Findings consistent with prior ablation of a left renal cell carcinoma. Ongoing follow-up is recom mended. Electronically signed by: Anne Poe MD (12/24/2020 12:59 AM) [facility]
== END 2020-12-24 01:50 | disposition home or self-care (01) ==
LOC: ER 23:45
DX: B34.9 Viral infection, unspecified (principal); J40 Bronchitis, not specified as acute or chronic; R91.1 Solitary pulmonary nodule; R05 Cough; R06.02 Shortness of breath; Z87.442 Personal history of urinary calculi; Z85.46 Personal history of malignant neoplasm of prostate; Z90.89 Acquired absence of other organs; Z88.0 Allergy status to penicillin
CPT/HCPCS: 36415; 71045; 71275; 80048; 80076; 82553; 83690; 83735; 83880; 84443; 84484; 85025; 85379; 85610; 85730; 93005; 94640; 96361; 96374; 99285; J2930; J7120; Q9967

== ENCOUNTER → 2021-05-26 | Outpatient (CLI) | payer BC ==
--- NOTE | 2021-05-26 12:14 | RAD ---
EXAM: Chest CT without intravenous contrast. HISTORY: Pulmonary nodule. Left nephrectomy. TECHNIQUE: Computed tomographic images of the chest were obtained without contrast. Multiplanar refor matting was performed. *One or more of the following individualized dose reduction techniques were utilized for this examina tion: 1. Automated exposure control. 2. Adjustment of the mA and/or kV according to patient size. 3. Use of iterative reconstruction technique. COMPARISON: 12/24/2020. FINDINGS: The heart is normal in size. No pathologically enlarged lymph node is seen. There are calci fied mediastinal and left hilar granulomas. There is no pneumothorax or pleural effusion. There is mi nimal posterior dependent atelectasis. There is no infiltrate. There is a stable 1.6 cm nodule with a djacent 3 mm and 1 mm satellite nodules within the lateral left upper lobe. No additional nodule is s een. There has been decrease in prior bronchial wall thickening. There is a tiny hiatal hernia. There is a stable 3.7 cm right hepatic cyst. There is fat and soft tissue density along the lateral upper mid zone of the left kidney with adjacent linear cortical density due to prior lesion ablation. There are nonobstructing renal stones, the largest of which measures 6 mm. There are degenerative changes involving the spine. There is no acute or suspicious osseous lesion. IMPRESSION: 1. Stable 1.6 cm nodule with adjacent tiny satellite nodules within the lateral left upper lobe. This is within limits for assessment with PET/CT. Alternatively, continued short-term follow-up or tissue sampling can be performed. 2. Decrease in previously demonstrated bronchial wall thickening likely due to bronchitis. There is n o acute infiltrate. 3. Fat and soft tissue density with adjacent linear cortical hyperdensity along the lateral left kidn ey, likely due to necrosis in the setting of prior lesion ablation. Attention the time of follow-up i s recommended. 4. Bilateral nephrolithiasis. 5. Hepatic cyst. Note is made that a left renal cyst demonstrated on a prior contrast enhanced exam i s not well seen on this noncontrast study. 6. Small hiatal hernia. Electronically signed by: Rachell Espinoza MD (05/26/2021 12:12 PM) [id number]
== END ==
LOC: CT 10:44
PROVIDERS: ATTEND Internal Medicine Critical Care Medicine
DX: R91.8 Other nonspecific abnormal finding of lung field (principal); J84.10 Pulmonary fibrosis, unspecified; K76.89 Other specified diseases of liver; J98.11 Atelectasis; K44.9 Diaphragmatic hernia without obstruction or gangrene; N28.1 Cyst of kidney, acquired; N20.0 Calculus of kidney
CPT/HCPCS: 71250